=== PATIENT | male | born 1965 | race Caucasian/White ===

== ENCOUNTER 2016-09-22 10:06 | Observation (INO) | payer BC ==
[2016-09-22] MEDS ORDERED: NITROGLYCERIN OINT 1 INCH/GM PACKET TOPICAL STA (10:36)
[2016-09-22] MEDS ORDERED: ASPIRIN 81 MG CHEW PO STA (10:36)
--- NOTE | 2016-09-22 10:43 | ED ---
General Adult HPI - General Chief complaint: Chest Pain Stated complaint: Chest Pain Time Seen by Provider: 09/22/16 10:10 Source: EMS, RN notes reviewed Mode of arrival: EMS Limitations: no limitations - History of Present Illness Initial comments: This is a 51-year-old male who presents emergency Department complaining of chest pain patient states started slowly but it escalated rather quickly became very tight and crushing of the pelvis chest. Patient states he then got some tingling to the back of his head and he went to the house. Patient states he has some labored breathing at that point and he sat down and started resting patient states the pain seemed to subside after a couple of minutes. Patient states currently he has no symptoms whatsoever. Patient denies any history of high blood pressure high cholesterol but he has had borderline diabetes and he does have a strong family history of heart disease. Patient denies any smoking. Patient denies any recent fever chills or cough. Patient denies abdominal pain patient denies nausea vomiting diarrhea. Patient denies any lightheadedness dizziness or near syncopal episode. - Related Data Home Medications Medication Instructions Recorded Confirmed Albuterol Sulfate [Proventil Hfa] 1 puff INHALATION RT-Q6H PRN 09/22/16 09/22/16 Aspirin 324 mg PO DAILY PRN 09/22/16 09/22/16 Hydrocortisone [Cortizone 10] 1 applic TOPICAL DAILY PRN 09/22/16 09/22/16 Levothyroxine Sodium [Synthroid] 200 mcg PO DAILY 09/22/16 09/22/16 Allergies Allergy/AdvReac Type Severity Reaction Status Date / Time No Known Allergies Allergy Verified 09/22/16 10:53 Review of Systems ROS Statement: Those systems with pertinent positive or pertinent negative responses have been documented in the HPI. ROS Other: All systems not noted in ROS Statement are negative. Past Medical History Past Medical History: Asthma, Thyroid Disorder History of Any Multi-Drug Resistant Organisms: None Reported Additional Past Surgical History / Comment(s): Eye Surgery Past Psychological History: No Psychological Hx Reported Smoking Status: Never smoker Past Alcohol Use History: Occasional Past Drug Use History: None Reported General Exam - General Exam Comments Initial Comments: GENERAL: Patient is well-developed and well-nourished. Patient is nontoxic and well- hydrated and is in mild distress. ENT: Neck is soft and supple. No significant lymphadenopathy is noted. Oropharynx is clear. Moist mucous membranes. Neck has full range of motion without eliciting any pain. EYES: The sclera were anicteric and conjunctiva were pink and moist. Extraocular movements were intact and pupils were equal round and reactive to light. Eyelids were unremarkable. PULMONARY: Unlabored respirations. Good breath sounds bilaterally. No audible rales rhonchi or wheezing was noted. CARDIOVASCULAR: There is a regular rate and rhythm without any murmurs gallops or rubs. ABDOMEN: Soft and nontender with normal bowel sounds. No palpable organomegaly was noted. There is no palpable pulsatile mass. SKIN: Skin is clear with no lesions or rashes and otherwise unremarkable. NEUROLOGIC: Patient is alert and oriented x3. Cranial nerves II through XII are grossly intact. Motor and sensory are also intact. Normal speech, volume and content. Symmetrical smile. MUSCULOSKELETAL: Normal extremities with adequate strength and full range of motion. No lower extremity swelling or edema. No calf tenderness. LYMPHATICS: No significant lymphadenopathy is noted PSYCHIATRIC: Normal psychiatric evaluation. Normal interpersonal interactions appears functionally intact in deals appropriately with others. No signs of depression. Limitations: no limitations Course Vital Signs 09/22/16 09/22/16 10:10 11:02 Temperature 97.8 F Pulse Rate 68 63 Respiratory 18 17 Rate Blood Pressure 138/64 122/61 O2 Sat by Pulse 98 98 Oximetry Medical Decision Making - Medical Decision Making EKG shows normal sinus rhythm at 65 bpm OK interval 160 QRS 106 QT interval 396 Q-T intervals 411. Patient's EKG shows no ST segment elevation or depression or T wave normalities are noted. Chest x-ray shows no acute normalities. I started patient on heparin. I spoke with Dr. Nunez he agreed to admit the patient admitted the patient wrote admitting orders and consultation cardiology - Lab Data Result diagrams: 09/22/16 10:18 09/22/16 10:18 Lab Results 09/22/16 09/22/16 09/22/16 Range/Units 10:18 10:18 10:18 WBC 5.3 (3.8-10.6) k/uL RBC 4.76 (4.30-5.90) m/uL Hgb 14.6 (13.0-17.5) gm/dL Hct 43.2 (39.0-53.0) % MCV 90.8 (80.0-100.0) fL MCH 30.7 (25.0-35.0) pg MCHC 33.8 (31.0-37.0) g/dL RDW 13.6 (11.5-15.5) % Plt Count 212 (150-450) k/uL Neutrophils % 50 % Lymphocytes % 35 % Monocytes % 8 % Eosinophils % 2 % Basophils % 1 % Neutrophils # 2.7 (1.3-7.7) k/uL Lymphocytes # 1.9 (1.0-4.8) k/uL Monocytes # 0.4 (0-1.0) k/uL Eosinophils # 0.1 (0-0.7) k/uL Basophils # 0.0 (0-0.2) k/uL PT (9.0-12.0) sec INR (<1.2) APTT (22.0-30.0) sec Sodium 141 (137-145) mmol/L Potassium 3.9 (3.5-5.1) mmol/L Chloride 104 (98-107) mmol/L Carbon Dioxide 25 (22-30) mmol/L Anion Gap 12 mmol/L BUN 19 (9-20) mg/dL Creatinine 1.11 (0.66-1.25) mg/dL Est GFR (MDRD) Af Amer >60 (>60 ml/min/1.73 sqM) Est GFR (MDRD) Non-Af >60 (>60 ml/min/1.73 sqM) Glucose 170 H (74-99) mg/dL Calcium 8.9 (8.4-10.2) mg/dL Magnesium 1.9 (1.6-2.3) mg/dL Total Bilirubin 0.5 (0.2-1.3) mg/dL AST 25 (17-59) U/L ALT 49 (21-72) U/L Alkaline Phosphatase 77 (38-126) U/L Total Creatine Kinase 112 (55-170) U/L CK-MB (CK-2) 1.0 (0.0-2.4) ng/mL CK-MB (CK-2) Rel Index 0.9 Troponin I <0.012 (0.000-0.034) ng/mL Total Protein 6.9 (6.3-8.2) g/dL Albumin 4.0 (3.5-5.0) g/dL 09/22/16 Range/Units 10:18 WBC (3.8-10.6) k/uL RBC (4.30-5.90) m/uL Hgb (13.0-17.5) gm/dL Hct (39.0-53.0) % MCV (80.0-100.0) fL MCH (25.0-35.0) pg MCHC (31.0-37.0) g/dL RDW (11.5-15.5) % Plt Count (150-450) k/uL Neutrophils % % Lymphocytes % % Monocytes % % Eosinophils % % Basophils % % Neutrophils # (1.3-7.7) k/uL Lymphocytes # (1.0-4.8) k/uL Monocytes # (0-1.0) k/uL Eosinophils # (0-0.7) k/uL Basophils # (0-0.2) k/uL PT 10.1 (9.0-12.0) sec INR 1.0 (<1.2) APTT 24.4 (22.0-30.0) sec Sodium (137-145) mmol/L Potassium (3.5-5.1) mmol/L Chloride (98-107) mmol/L Carbon Dioxide (22-30) mmol/L Anion Gap mmol/L BUN (9-20) mg/dL Creatinine (0.66-1.25) mg/dL Est GFR (MDRD) Af Amer (>60 ml/min/1.73 sqM) Est GFR (MDRD) Non-Af (>60 ml/min/1.73 sqM) Glucose (74-99) mg/dL Calcium (8.4-10.2) mg/dL Magnesium (1.6-2.3) mg/dL Total Bilirubin (0.2-1.3) mg/dL AST (17-59) U/L ALT (21-72) U/L Alkaline Phosphatase (38-126) U/L Total Creatine Kinase (55-170) U/L CK-MB (CK-2) (0.0-2.4) ng/mL CK-MB (CK-2) Rel Index Troponin I (0.000-0.034) ng/mL Total Protein (6.3-8.2) g/dL Albumin (3.5-5.0) g/dL Disposition Clinical Impression: Unstable angina pectoris Disposition: ADMITTED IP TO THIS HOSP Referrals: Kayla Lew MD [Primary Care Provider] - 1-2 days Time of Disposition: 11:52
[2016-09-22 10:51] LABS: Basophils % (A) 1 %; CH 31.5; CHCM 34.8; Eosinophils # (A) 0.1 k/uL (0-0.7); Eosinophils % (A) 2 %; HCT 43.2 % (39.0-53.0); HDW 2.66; HGB 14.6 gm/dL (13.0-17.5); Luc # (Auto) 0.19; Luc % (Auto) 4; Lymphocytes # (A) 1.9 k/uL (1.0-4.8); Lymphocytes % (A) 35 %; MCH 30.7 pg (25.0-35.0); MCHC 33.8 g/dL (31.0-37.0); MCV 90.8 fL (80.0-100.0); Mean Platelet Volume 7.5; Monocytes # (A) 0.4 k/uL (0-1.0); Monocytes % (A) 8 %; Neutrophils # (A) 2.7 k/uL (1.3-7.7); Neutrophils % (A) 50 %; RBC 4.76 m/uL (4.30-5.90); RDW 13.6 % (11.5-15.5); WBC 5.3 k/uL (3.8-10.6); WBC (Perox) 5.13
[2016-09-22 11:01] LABS: ALT 49 U/L (21-72); AST 25 U/L (17-59); Alkaline Phosphatase 77 U/L (38-126); Anion Gap 12 mmol/L; Blood Urea Nitrogen 19 mg/dL (9-20); Calcium 8.9 mg/dL (8.4-10.2); Carbon Dioxide 25 mmol/L (22-30); Chloride 104 mmol/L (98-107); Glucose 170 mg/dL (74-99); Magnesium 1.9 mg/dL (1.6-2.3); Non-African American GFR(MDRD) >60 (>60 ml/min/1.73 sqM); Potassium 3.9 mmol/L (3.5-5.1); Sodium 141 mmol/L (137-145); Total Bilirubin 0.5 mg/dL (0.2-1.3); Total Protein 6.9 g/dL (6.3-8.2)
[2016-09-22 11:04] LABS: Partial Thromboplastin Time 24.4 sec (22.0-30.0); Prothrombin Time 10.1 sec (9.0-12.0)
[2016-09-22 11:14] LABS: Creatine Kinase 112 U/L (55-170)
--- NOTE | 2016-09-22 11:17 | XR ---
EXAMINATION TYPE: XR chest 2V DATE OF EXAM: 09/22/2016 COMPARISON: NONE HISTORY: Episode of chest pressure and pain. TECHNIQUE: Frontal and lateral views of the chest are obtained. FINDINGS: There is no focal air space opacity, pleural effusion, or pneumothorax seen. The cardiac silhouette size is within normal limits. The osseous structures are intact. IMPRESSION: No acute process.
[2016-09-22 11:27] LABS: Troponin I <0.012 ng/mL (0.000-0.034)
[2016-09-22] MEDS ORDERED: HEPARIN SODIUM,PORCINE 5,000 UNIT/ML 1 ML VIAL IV ONE (11:51)
[2016-09-22] MEDS ORDERED: NITROGLYCERIN SL TABS 0.4 MG TAB SUBLINGUAL PRN (11:52)
[2016-09-22] MEDS ORDERED: HEPARIN SODIUM,PORCINE/D5W PMX 25,000 UNIT in DEXTROSE/WATER 1 500ML.BAG IV SCH (12:00)
[2016-09-22] MEDS: NITROGLYCERIN OINT 1 INCH/GM PACKET TOPICAL SCH ×3 (12:03→22:15)
[2016-09-22 12:37] VITALS: RESP 18
[2016-09-22 17:31] LABS: Creatine Kinase 110 U/L (55-170)
[2016-09-22 17:43] LABS: Troponin I <0.012 ng/mL (0.000-0.034)
[2016-09-22] MEDS ORDERED: ALBUTEROL NEBULIZED 2.5 MG/3 ML INHALATION PRN (21:49)
[2016-09-22] MEDS ORDERED: HEPARIN SODIUM,PORCINE 5,000 UNIT/ML 1 ML VIAL IV PRN (23:46)
[2016-09-23 00:46] LABS: Creatine Kinase 101 U/L (55-170)
[2016-09-23 01:00] LABS: Creatine Kinase MB 0.9 ng/mL (0.0-2.4); Troponin I <0.012 ng/mL (0.000-0.034)
[2016-09-23] MEDS ORDERED: LEVOTHYROXINE 100 MCG TAB PO SCH (06:30)
[2016-09-23] MEDS: NITROGLYCERIN OINT 1 INCH/GM PACKET TOPICAL SCH ×2 (06:55→12:27)
[2016-09-23] MEDS ORDERED: ASPIRIN 325 MG TAB PO SCH (09:00)
[2016-09-23 09:49] LABS: Cholesterol 180 mg/dL (<200); HDL Cholesterol 39 mg/dL (40-60)
--- NOTE | 2016-09-23 11:28 | ECHOF ---
Referral Reason:chest pain MEASUREMENTS -------- HEIGHT: 182.9 cm WEIGHT: 127.0 kg BP: 94/50 RVIDd: 2.7 cm (< 3.3) IVSd: 1.2 cm (0.6 - 1.1) LVIDd: 3.8 cm (3.9 - 5.3) LVPWd: 1.2 cm (0.6 - 1.1) IVSs: 1.3 cm LVIDs: 3.1 cm LVPWs: 1.2 cm LA Diam: 3.1 cm (2.7 - 3.8) Ao Diam: 3.6 cm (2.0 - 3.7) AV Cusp: 2.2 cm (1.5 - 2.6) LA Diam: 3.8 cm (2.7 - 3.8) MV EXCURSION: 21.171 mm (> 18.000) MV EF SLOPE: 146 mm/s (70 - 150) EPSS: 0.2 cm MV E Jeff: 0.54 m/s MV DecT: 188 ms MV A Jeff: 0.47 m/s MV E/A Ratio: 1.16 RAP: 5.00 mmHg RVSP: 11.44 mmHg FINDINGS -------- Sinus rhythm. This was a technically adequate study. Morbid Obesity There is mild concentric left ventricular hypertrophy. Overall left ventricular systolic function is normal with, an EF between 55 - 60 %. The right ventricle is normal in size. The right atrial size is normal. 1.5MG OF DEFINITY UTLIZED: 2 OR MORE WALL SEGMENTS NOT VISUALIZED. There is mild aortic valve sclerosis. There is no evidence of aortic regurgitation. Mild mitral annular calcification present. Mild mitral regurgitation is present. Mild tricuspid regurgitation present. There is no evidence of pulmonary hypertension. The right ventricular systolic pressure, as measured by Doppler, is 11.44mmHg. There is no pulmonic regurgitation present. The aortic root size is normal. There is no pericardial effusion. CONCLUSIONS -------- 1. There is mild concentric left ventricular hypertrophy. 2. Overall left ventricular systolic function is normal with, an EF between 55 - 60 %. 3. 1.5MG OF DEFINITY UTLIZED: 2 OR MORE WALL SEGMENTS NOT VISUALIZED. 4. There is mild aortic valve sclerosis. 5. Mild mitral annular calcification present. 6. Mild mitral regurgitation is present. 7. Mild tricuspid regurgitation present. 8. There is no evidence of pulmonary hypertension. 9. The right ventricular systolic pressure, as measured by Doppler, is 11.44mmHg. PULP BEATER: Pamela Andrade RDCS
[2016-09-23 12:01] VITALS: BP 148/83; PULSE 99; TEMP 98.4
--- NOTE | 2016-09-23 12:14 | ECHOS ---
Referral Reason:chest pain MEASUREMENTS -------- HEIGHT: 182.9 cm WEIGHT: 134.7 kg BP: 200/91 WallScoring: string WallScoring: string WallScoring: string FINDINGS -------- Utilizing the standard Kirill protocol the patient was exercised for 7 minutes,0 seconds, achieving a maximum heart rate of160 , which is 94 % of predicted maximal heart rate. There was physiologic heart rate and blood pressure response to exercise. Max Heart Rate: 160 % of Max Predicted Heart Rate: 94 Rest Heart Rate: 87 Rest BP: 200/91 Max BP: 206/58 Mets Achieved: 8.7 The test was stopped because the target heart rate was achieved. Sinus rhythm. In response to stress, the ECG showed no ST-T wave changes (see exercise report for details). LV size, wall thickness and systolic function are normal, with an EF of 60%. Echo images were acquired at peak stress which demonstrated appropriate augmentation of all left ventricular segments with slight decrease in cavity size. CONCLUSIONS -------- 1. Sinus rhythm. 2. In response to stress, the ECG showed no ST-T wave changes (see exercise report for details). 3. LV size, wall thickness and systolic function are normal, with an EF of 60%. 4. Echo images were acquired at peak stress which demonstrated appropriate augmentation of all left ventricular segments with slight decrease in cavity size. PAPER CLEANER: Sherry Cruz RDCS
--- NOTE | 2016-09-23 13:53 | P.CRDCN ---
History of Present Illness Consult date: 09/22/16 History of present illness: This is a 51-year-old male who presents to the emergency department after an episode of chest pain at home. He states he was out in his yard looking at a car not exerting himself physically or emotionally. He states out of the blue he started feeling a grabbing, squeezing pain over the left chest. After a few seconds he began to feel tingling in the back of his head and some pain in the left posterior neck. He proceeded to walk into the house so he could sit down and talk to his . Upon sitting down the pain persisted and he became short of breath. So he decided to call 911. His was on the phone with emergency services they recommended chewing 4 baby aspirin. He did this and within a minute his chest pain began to subside. He states he has never seen a facilities maintenance engineer in the past for any reason. He denies history of hypertension, hyperlipidemia or CAD. He states he was diagnosed with diabetes but has been diet controlled. He also has a history of sleep apnea which he wears a CPAP at night. He has had one stress test in the past estimated around 3-4 years ago which she states was normal. Upon examination he is seen resting comfortably on the stretcher in the emergency department in no acute distress. He denies further chest pain, shortness of breath, dizziness, nausea, diaphoresis, palpitations or vomiting. he did have an episode overnight extreme shortness of breath which he termed "asthma attack". Review of Systems REVIEW OF SYSTEMS: Patient denies any chest discomfort. No shortness of breath. No diaphoresis. He denies headache, dizziness, blurred vision, double vision. No dyspnea on exertion. Patient denies any stomach discomfort. No nausea, vomiting. No hematochezia. No hematemesis. Denies any black stools or blood in his stools. No syncope. No palpitations. No cough. No recent fever or chills. Denies dysuria or hematuria. No muscle weakness or numbness. Past Medical History Past Medical History: Asthma, Thyroid Disorder Additional Past Medical History / Comment(s): Sleep apnea, CPAP at night History of Any Multi-Drug Resistant Organisms: None Reported Additional Past Surgical History / Comment(s): Eye Surgery Past Psychological History: No Psychological Hx Reported Smoking Status: Never smoker Past Alcohol Use History: Occasional Past Drug Use History: None Reported - Past Family History Mother Family Medical History: Coronary Artery Disease (CAD), Diabetes Mellitus Additional Family Medical History / Comment(s): STENTS Father Family Medical History: Cancer Additional Family Medical History / Comment(s): STOMACH CANCER Medications and Allergies Home Medications Medication Instructions Recorded Confirmed Type Albuterol Sulfate [Proventil Hfa] 1 puff INHALATION RT-Q6H PRN 09/22/16 History Aspirin 324 mg PO DAILY PRN 09/22/16 09/22/16 History Hydrocortisone [Cortizone 10] 1 applic TOPICAL DAILY PRN 09/22/16 09/22/16 History Levothyroxine Sodium [Synthroid] 200 mcg PO DAILY 09/22/16 09/22/16 History Allergies Allergy/AdvReac Type Severity Reaction Status Date / Time No Known Allergies Allergy Verified 09/22/16 10:53 Physical Exam Vitals: Vital Signs Temp Pulse Pulse Resp BP BP Pulse Ox 09/22/16 15:54 98.0 F 67 18 98/54 96 09/22/16 15:33 98.6 F 76 18 95/52 97 09/22/16 14:41 62 18 94/50 98 09/22/16 13:41 64 18 95/51 96 09/22/16 12:41 62 18 99/47 97 09/22/16 12:35 97.7 F 62 18 102/55 96 09/22/16 11:02 63 17 122/61 98 09/22/16 10:10 97.8 F 68 18 138/64 98 Intake and Output 09/22/16 09/22/16 09/22/16 06:59 14:59 22:59 Other: Weight 127.006 kg 134.9 kg Patient Weight 09/23/16 06:59 Weight 134.9 kg GENERAL: This is a 51-year-old male in no apparent distress at the time of my examination. Obesity, BMI 40.3 HEENT: Head is atraumatic, normocephalic. Pupils are equal, round. Sclerae anicteric. Conjunctivae are clear. Mucous membranes of the mouth are moist. Neck is supple. There is no jugular venous distention. No carotid bruit is heard. LUNGS: Expiratory wheeze, no rales, no rhonchi. No chest wall tenderness is noted on palpation or with deep breathing. HEART: Regular rate and rhythm without murmurs, rubs or gallops. S1 and S2 heard. ABDOMEN: Soft, nontender. Bowel sounds are heard. No organomegaly noted. EXTREMITIES: 2+ peripheral pulses with no evidence of peripheral edema and no calf tenderness noted. NEUROLOGIC: Patient is awake, alert and oriented x3. Results 09/22/16 10:18 09/22/16 10:18 Cardiac Enzymes 09/22/16 09/22/16 Range/Units 10:18 10:18 AST 25 (17-59) U/L CK-MB (CK-2) 1.0 (0.0-2.4) ng/mL Troponin I <0.012 (0.000-0.034) ng/mL Coagulation 09/22/16 Range/Units 10:18 PT 10.1 (9.0-12.0) sec APTT 24.4 (22.0-30.0) sec CBC 09/22/16 Range/Units 10:18 WBC 5.3 (3.8-10.6) k/uL RBC 4.76 (4.30-5.90) m/uL Hgb 14.6 (13.0-17.5) gm/dL Hct 43.2 (39.0-53.0) % Plt Count 212 (150-450) k/uL Comprehensive Metabolic Panel 09/22/16 Range/Units 10:18 Sodium 141 (137-145) mmol/L Potassium 3.9 (3.5-5.1) mmol/L Chloride 104 (98-107) mmol/L Carbon Dioxide 25 (22-30) mmol/L BUN 19 (9-20) mg/dL Creatinine 1.11 (0.66-1.25) mg/dL Glucose 170 H (74-99) mg/dL Calcium 8.9 (8.4-10.2) mg/dL AST 25 (17-59) U/L ALT 49 (21-72) U/L Alkaline Phosphatase 77 (38-126) U/L Total Protein 6.9 (6.3-8.2) g/dL Albumin 4.0 (3.5-5.0) g/dL Current Medications Generic Name Dose Route Start Last Admin Trade Name Freq PRN Reason Stop Dose Admin Aspirin 325 mg 09/23/16 09:00 Aspirin PO DAILY UZIEL Heparin Sodium/Dextrose 25,000 500 mls @ 20 mls/hr 09/22/16 12:00 09/22/16 12 :34 unit/ IV Solution IV 7.87 units/kg/hr .Q24H UZIEL 19.99 mls/hr Protocol Administration Nitroglycerin 1 inch 09/22/16 12:00 09/22/16 12:03 Nitro-Bid Oint TOPICAL Not Given Q6HR [facility] Nitroglycerin 0.4 mg 09/22/16 11:52 Nitrostat SUBLINGUAL Q5M PRN Chest Pain Intake and Output 09/22/16 09/22/16 09/22/16 06:59 14:59 22:59 Other: Weight 127.006 kg 134.9 kg Patient Weight 09/23/16 06:59 Weight 134.9 kg 09/22/16 10:18 09/22/16 10:18 - Imaging and Cardiology Comment: Chest x-ray shows no acute process. Echo: pending - EKG Interpretation EKG: sinus rhythm, normal ST/T Assessment and Plan Plan: ASSESSMENT 1. Chest pain, noncardiac, most likely secondary to pulmonary process. 2. Asthma. 3. Obesity. PLAN Patient is scheduled for a exercise stress echocardiogram as well as complete echocardiogram. If both of these are normal from a cardiac standpoint the patient is stable for discharge home.
--- NOTE | 2016-09-23 15:40 | P.HPIM ---
History of Present Illness H&P Date: 09/23/16 (DC summary) Chief Complaint: Chest pain This is a 51-year-old gentleman with history of hypothyroidism obstructive sleep apnea comes in the hospital with chest pain on the left side describes it as nonradiating and lasted less than 5 minutes however with patient's significant family history of heart disease patient came to the hospital for further evaluation EKG in the emergency room did not reveal ST-T wave changes She states that he has a stress is about 3-4 years ago which was negative Patient symptoms are resolved States that he does exercise daily as much as possible however tolerance has decreased over the recent times due to dizziness or At the time of my evaluation patient states that he symptom-free including no headaches nausea chest pain , breathing difficulty , abdominal pain diarrhea Past Medical History Past Medical History: Asthma, Thyroid Disorder Additional Past Medical History / Comment(s): Sleep apnea, CPAP at night History of Any Multi-Drug Resistant Organisms: None Reported Additional Past Surgical History / Comment(s): Eye Surgery Past Anesthesia/Blood Transfusion Reactions: No Reported Reaction Past Psychological History: No Psychological Hx Reported Smoking Status: Never smoker Past Alcohol Use History: Occasional Past Drug Use History: None Reported - Past Family History Mother Family Medical History: Coronary Artery Disease (CAD), Diabetes Mellitus Additional Family Medical History / Comment(s): STENTS Father Family Medical History: Cancer Additional Family Medical History / Comment(s): STOMACH CANCER Medications and Allergies Home Medications Medication Instructions Recorded Confirmed Type Albuterol Sulfate [Proventil Hfa] 1 puff INHALATION RT-Q6H PRN 09/22/16 History Aspirin 324 mg PO DAILY PRN 09/22/16 09/22/16 History Hydrocortisone [Cortizone-10] 1 applic TOPICAL DAILY PRN 09/22/16 09/22/16 History Levothyroxine Sodium [Synthroid] 200 mcg PO DAILY 09/22/16 09/22/16 History Allergies Allergy/AdvReac Type Severity Reaction Status Date / Time No Known Allergies Allergy Verified 09/22/16 10:53 Physical Exam Vitals: Vital Signs Temp Pulse Pulse Resp BP Pulse Ox 09/23/16 12:00 98.4 F 99 18 148/83 96 09/23/16 08:00 98.2 F 81 18 167/82 96 09/23/16 04:00 98 F 61 18 146/82 98 09/23/16 00:00 18 09/22/16 23:53 70 18 154/64 98 09/22/16 23:03 88 09/22/16 22:56 88 09/22/16 20:00 18 09/22/16 19:36 97.9 F 72 18 101/57 95 09/22/16 16:03 18 09/22/16 15:54 98.0 F 67 18 98/54 96 Intake and Output 09/23/16 09/23/16 09/23/16 06:59 14:59 22:59 Intake Total 82.054 236 Balance 82.054 236 Intake: Intake, IV Titration 82.054 Amount Heparin Sodium,Porcine/ 82.054 D5w Pmx 25,000 unit In Dextrose/Water 1 500ml. bag @ 20 mls/hr IV .Q24H [facility] Rx#:[id number] Oral 236 Other: Voiding Method Toilet Toilet Physical exam Gen. appearance oriented 3 in no distress Neck is supple no JVD Lungs good air entry clear to auscultation no rhonchi or wheezing Heart S1-S2 heard regular rate and rhythm no murmurs appreciated Abdomen is soft nontender no organomegaly bowel sounds are intact Neurologically cranial nerves II-12 grossly intact no focal motor or sensory deficits noted Skin no abnormalities appreciated Results CBC & Chem 7: 09/22/16 10:18 09/22/16 10:18 Labs: Abnormal Lab Results - Last 24 Hours (Table) 09/22/16 09/23/16 Range/Units 16:44 09:11 APTT >200.0 H* (22.0-30.0) sec Triglycerides 205 H (<150) mg/dL LDL Cholesterol, Calc 100 H (0-99) mg/dL HDL Cholesterol 39 L (40-60) mg/dL Assessment and Plan Plan: 1 atypical chest pain ACS is ruled out status post negative stress test #2 hypothyroidism #3 obstructive sleep apnea Plan Patient is going be discharged home. Recommended aspirin patient did tolerate 7 and half minutes on the modified Kirill protocol is recommended to continue exercising Is discharged home discussed the results of the stress test
--- NOTE | 2016-09-23 15:59 | EST ---
Referral Reason:chest pain MEASUREMENTS -------- HEIGHT: 182.9 cm WEIGHT: 134.7 kg BP: 200/91 FINDINGS -------- Utilizing the standard Kirill protocol the patient was exercised for 7 minutes,0 seconds, achieving a maximum heart rate of160 , which is 94 % of predicted maximal heart rate. There was physiologic heart rate and blood pressure response to exercise. Max Heart Rate: 160 % of Max Predicted Heart Rate: 94 Rest Heart Rate: 87 Rest BP: 200/91 Max BP: 206/58 Mets Achieved: 8.7 The test was stopped because the target heart rate was achieved. Sinus rhythm. In response to stress, the ECG showed no ST-T wave changes (see exercise report for details). LV size, wall thickness and systolic function are normal, with an EF of 60%. Echo images were acquired at peak stress which demonstrated appropriate augmentation of all left ventricular segments with slight decrease in cavity size. CONCLUSIONS -------- 1. Sinus rhythm. 2. In response to stress, the ECG showed no ST-T wave changes (see exercise report for details). 3. LV size, wall thickness and systolic function are normal, with an EF of 60%. 4. Echo images were acquired at peak stress which demonstrated appropriate augmentation of all left ventricular segments with slight decrease in cavity size. DESTINATION COORDINATOR: DIMA Taylor
== END 2016-09-23 15:20 | disposition home or self-care (01) ==
LOC: EC 10:06 → 3OBS 11:52
PROVIDERS: ADMIT Internal Medicine; ATTEND Internal Medicine
DX: R07.89 Other chest pain (principal); E66.9 Obesity, unspecified; J45.909 Unspecified asthma, uncomplicated; R20.2 Paresthesia of skin; E78.5 Hyperlipidemia, unspecified; I10 Essential (primary) hypertension; E11.9 Type 2 diabetes mellitus without complications; G47.33 Obstructive sleep apnea (adult) (pediatric); E03.9 Hypothyroidism, unspecified; Z83.3 Family history of diabetes mellitus; Z79.899 Other long term (current) drug therapy; Z82.49 Family history of ischemic heart disease and other diseases of the circulatory system; Z68.41 Body mass index [BMI] 40.0-44.9, adult; Z99.89 Dependence on other enabling machines and devices
CPT/HCPCS: 96366 ×3; 96376 ×2; 96365; 99285; 36415; 94640; 93005; 93350; 93017; 93306; 85379; 80061; 80053; 82550 ×2; 82553 ×2; 83735; 84484 ×2; 85025; 85610; 85730 ×2; 71020; G0378 ×2; J1644 ×3; Q9957 ×2

== ENCOUNTER → 2018-12-07 | Outpatient (CLI) | payer BC ==
--- NOTE | 2018-12-07 11:15 | XR ---
EXAMINATION TYPE: XR shoulder complete RT DATE OF EXAM: 12/07/2018 CLINICAL HISTORY: Increasing pain over last few years. TECHNIQUE: Three views of the right shoulder are obtained. COMPARISON: None. FINDINGS: There is no acute fracture/dislocation evident in the right shoulder. Mild narrowing at ac romioclavicular and glenohumeral joints. Distal acromion morphology is unremarkable. The visualized ribs are intact and unremarkable. IMPRESSION: As above.
== END | disposition home or self-care (01) ==
LOC: RADXRYALE 10:44
PROVIDERS: ATTEND Internal Medicine
DX: M25.811 Other specified joint disorders, right shoulder (principal)

== ENCOUNTER → 2019-09-14 | Outpatient (CLI) | payer BC | END | disposition home or self-care (01) | LOC: LABWHC1 09:15 | PROVIDERS: ATTEND Internal Medicine | DX: Z20.828 Contact with and (suspected) exposure to other viral communicable diseases (principal) | CPT/HCPCS: U0003; C9803 ==

== ENCOUNTER → 2022-01-27 | Outpatient (CLI) | payer BC | END | disposition home or self-care (01) | LOC: LABWHC1 11:17 | PROVIDERS: ATTEND Internal Medicine | DX: U07.1 COVID-19 (principal) | CPT/HCPCS: U0003; U0005 ==

== ENCOUNTER → 2022-08-06 | Outpatient (CLI) | payer BC, OTHER ==
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
== END | disposition home or self-care (01) ==
LOC: RADMRIMAIN 11:04
PROVIDERS: ATTEND Orthopaedic Surgery
DX: M67.821 Other specified disorders of synovium, right elbow (principal); M25.521 Pain in right elbow

== ENCOUNTER → 2022-12-02 | Outpatient (CLI) | payer BC, OTHER ==
[2022-12-02 15:37] LABS: Basophils # (A) 0.07 X 10*3/uL (0.00-0.10); Basophils % (A) 0.9 %; Eosinophils # (A) 0.13 X 10*3/uL (0.04-0.35); Eosinophils % (A) 1.6 %; HCT 47.6 % (39.6-50.0); Lymphocytes # (A) 2.48 X 10*3/uL (0.90-5.00); Lymphocytes % (A) 31.5 %; MCH 30.4 pg (27.0-32.0); MCHC 33.6 d/dL (32.0-37.0); MCV 90.5 FL (80.0-97.0); Mean Platelet Volume 10.3 FL (9.5-12.2); Monocytes # (A) 1.02 X 10*3/uL (0.20-1.00); Monocytes % (A) 12.9 %; NRBC Per 100 WBC 0 X 10*3/uL (0.00-0.01); Neutrophils # (A) 4.05 X 10*3/uL (1.80-7.70); Neutrophils % (A) 51.5 %; Platelet Count 187 X 10*3/uL (140-440); RBC 5.26 X 10*6/uL (4.40-5.60); RDW 12.4 % (11.5-14.5); WBC 7.88 X 10*3/uL (4.50-10.00)
[2022-12-02 16:17] LABS: Blood Urea Nitrogen 13.6 mg/dL (9.0-27.0); Calcium 9.1 mg/dL (8.7-10.3); Carbon Dioxide 27.1 mmol/L (21.6-31.8); Chloride 104 mmol/L (96-109); Glucose 129 mg/dL (70-110); Potassium 4.3 mmol/L (3.5-5.5); Sodium 143 mmol/L (135-145)
== END | disposition home or self-care (01) ==
LOC: LABPAT 09:09
PROVIDERS: ATTEND Orthopaedic Surgery
DX: Z01.818 Encounter for other preprocedural examination (principal); M23.91 Unspecified internal derangement of right knee
CPT/HCPCS: 80048; 85025; 93005

== ENCOUNTER 2022-12-11 06:49 | Day surgery (SDC) | payer BC, OTHER ==
[2022-12-07 15:43] VITALS: BMI 37.3
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
[~2022-12-11 06:49] MED LIST: LACTATED RINGERS 1,000 ML IV SCH; LIDOCAINE 1% (10MG/ML) FOR IV START INTRADERMA PRN; ONDANSETRON 4 MG/2 ML VIAL IVP ONE; ceFAZolin 3 GM in SODIUM CHLORIDE 0.9% 100 ML IVPB PRN; droPERidol 5 MG/2 ML VIAL IVP ONE
[2022-12-11 08:11] LABS: Glucose,Whole Blood 131 mg/dL (70-110)
[2022-12-11] MEDS ORDERED: DEXAMETHASONE SOD PHOSPHATE 4 MG/ML 1 ML VIAL IVP ONE (08:12)
[2022-12-11] MEDS ORDERED: SUCCINYLCHOLINE CHLORIDE 200 MG/10 ML VIAL IV ONE (08:40)
[2022-12-11] MEDS ORDERED: LIDOCAINE 1% INJ 10MG/ML (20 ML MDV) ONE (08:40)
[2022-12-11] MEDS ORDERED: HYDROmorphone (PF) 1 MG/ML ONE (08:40)
[2022-12-11] MEDS ORDERED: MIDAZOLAM 2 MG/2 ML VIAL ONE (08:40)
[2022-12-11] MEDS ORDERED: PROPOFOL 10 MG/ML 20 ML VIAL IV ONE (08:40)
[2022-12-11] MEDS ORDERED: fentaNYL (PF) 50 MCG/ML 2 ML AMP ONE (08:40)
[2022-12-11] MEDS ORDERED: ALBUTEROL HFA INHALER INHALATION ONE (08:40)
[2022-12-11] MEDS ORDERED: EPINEPHrine (PF) 1 ML in SODIUM CHLORIDE 0.9% IRRIGATIO 3,000 ML IRRIGATION ONE (09:04)
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
[2022-12-11] MEDS: HYDROmorphone 0.5 MG/0.5 ML SYRINGE IVP PRN ×2 (10:11→10:19)
[2022-12-11 10:19] VITALS: TEMP 96.8
[2022-12-11 11:04] VITALS: RESP 16
[2022-12-11 12:30] VITALS: BP 129/73; PULSE 79
== END 2022-12-11 12:12 | disposition home or self-care (01) ==
LOC: OR 06:49
PROVIDERS: ATTEND Orthopaedic Surgery
DX: S83.241A Other tear of medial meniscus, current injury, right knee, initial encounter (principal); M23.91 Unspecified internal derangement of right knee; S83.281A Other tear of lateral meniscus, current injury, right knee, initial encounter; K21.9 Gastro-esophageal reflux disease without esophagitis; J45.909 Unspecified asthma, uncomplicated; E11.9 Type 2 diabetes mellitus without complications; G47.30 Sleep apnea, unspecified; Z79.1 Long term (current) use of non-steroidal anti-inflammatories (NSAID); Z79.84 Long term (current) use of oral hypoglycemic drugs; Z79.890 Hormone replacement therapy; X58.XXXA Exposure to other specified factors, initial encounter
CPT/HCPCS: 29880; J2250; J0330; J1100; J0690; J2405; J0171; J2001; J3010; J1170 ×2; J2704

== ENCOUNTER → 2023-07-29 | Outpatient (CLI) | payer BC, OTHER ==
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
== END | disposition home or self-care (01) ==
LOC: RADMRIMAIN 07:39
PROVIDERS: ATTEND Orthopaedic Surgery
DX: S83.242A Other tear of medial meniscus, current injury, left knee, initial encounter (principal); M25.462 Effusion, left knee; M71.22 Synovial cyst of popliteal space [Baker], left knee; M94.262 Chondromalacia, left knee

== ENCOUNTER → 2023-08-10 | Outpatient (CLI) | payer BC, OTHER ==
--- NOTE | 2023-08-10 13:25 | XR ---
History the patient is EXAMINATION TYPE: XR cervical spine comp DATE OF EXAM: 08/10/2023 CLINICAL HISTORY: pain COMPARISON: NONE TECHNIQUE: Frontal, lateral, oblique, swimmers, and open mouth view of the cervical spine are obtaine d. FINDINGS: The cervical spine is visualized in its entirety from C1 thru the top of T1 level. It is s atisfactory in alignment without evidence of acute fracture or dislocation. The pre-vertebral soft t issue appears within normal limits. Disc spaces are well preserved. The C1-C2 articulation is unremar kable on the open mouth view. The oblique images are within normal limits. IMPRESSION: No acute fracture or dislocation is seen in the cervical spine.ICD 10 NO FRACTURE, INITI AL EVALUATION
== END | disposition home or self-care (01) ==
LOC: RADXRYALE 13:05
PROVIDERS: ATTEND Internal Medicine
DX: S13.4XXA Sprain of ligaments of cervical spine, initial encounter (principal)
CPT/HCPCS: 72050